=== PATIENT | female | born 1935 | race American Indian/Alaskan Native ===

== ENCOUNTER 2018-12-30 08:14 | Day surgery (SDC) | payer MEDICARE ==
[~2018-12-30 08:14] MED LIST: TETRACAINE 0.5% OS PRN
[2018-12-30] MEDS: MYDRIACYL OS SCH ×2 (09:45→09:55)
[2018-12-30] MEDS: VIGAMOX OS SCH ×3 (09:45→09:55)
[2018-12-30] MEDS: AK-Dilate OS SCH ×3 (09:45→09:55)
--- NOTE | 2018-12-30 10:10 | Anesthesia Day of Surgery ---
Anesthesia Day of Surgery - Day of Surgery Patient Examined: Yes Patient H&P Reviewed: Yes Patient is NPO: Yes
--- NOTE | 2018-12-30 10:15 | Anesthesia Consultation ---
Anesthesia Consult and Med Hx Date of service: 12/30/18 - Airway Anesthetic Teeth Evaluation: Good, Dentures ROM Head & Neck: Adequate Mental/Hyoid Distance: Adequate Mallampati Class: Class II Intubation Access Assessment: Probably Good - Pre-Operative Health Status ASA Pre-Surgery Classification: ASA3 Proposed Anesthetic Plan: MAC - Pulmonary Hx Smoking: No Hx Sleep Apnea: No - Cardiovascular System Hx Hypertension: Yes Hx Heart Attack/AMI: No Hx Angina: No - Central Nervous System CVA: Yes Hx Psychiatric Problems: Yes (Depression) - Gastrointestinal Hx Gastroesophageal Reflux Disease: Yes - Endocrine Hx Non-Insulin Dependent Diabetes: Yes - Hematic Hx Anemia: No - Other Systems Hx Alcohol Use: No Hx Substance Use: No Hx Cancer: No
[2018-12-30] MEDS ORDERED: VERSED ONE (11:01)
[2018-12-30] MEDS ORDERED: SUBLIMAZE ONE (11:02)
[2018-12-30] MEDS ORDERED: DIAMOX PO NR (11:15)
--- NOTE | 2018-12-30 11:16 | Operative Report ---
Operative Report Operative Report: PATIENT'S NAME: DATE OF : DATE OF SURGERY: 12/30/2018 PREOPERATIVE DIAGNOSIS: Cataract left eye POSTOPERATIVE DIAGNOSIS: Same OPERATIVE PROCEDURE: Phacoemulsification with intraocular lens implantation, left eye SURGEON: Juana Sidhu M.D. PHOTO TECHNOLOGIST SURGEON: Azeb Lens: 22.50 mx60e D ANESTHESIA: Monitored anesthesia care in combination with topical and intracameral anesthesia because of the established specific risk of reflux, arrhythmias, or anxiety attacks associated with ocular manipulation, as well as the difficulty of the cotton agent to manage such potentially catastrophic events while simultaneously attempting to complete the surgical procedure and was deemed necessary for the patient's safety to have an Senior Hydrogeologist present during the procedure whenever possible. An Senior Hydrogeologist was utilized to regulate the intravenous sedation of the patient so the patient was cooperative yet not asleep in order for the patient to successfully maintain fixation of the eye on the operating light of the microscope. COMPLICATIONS: No surgical complications No blood loss. ALLERGIES: No known drug allergies PROGNOSIS: Excellent INDICATIONS FOR SURGERY: The patient is undergoing surgery in the hopes of eliminating or improving these visual difficulties. PROCEDURE: After arriving at the surgery center, the patient was given topical anesthetic and dilating drops, as noted in the record. The patient was then taken into the operating room and given more anesthetic drops. The eyelids, lashes, and lid margins were scrubbed with Betadine solution, and the patient was draped. The Nurse Senior Hydrogeologist administered IV sedation and monitored the patient during the procedure. The eye was then fixated with a 0.12, and a stab incision was made in the peripheral clear cornea into the anterior chamber. This was made on my left side. Viscoelastic was next used to fill the anterior chamber. The eye was once again fixated with the 0.12 forceps and a keratome was used make an incision in clear cornea peripherally on my right hand side temporally. The capsule forceps were used to open the central anterior capsule and then make a continuous round capsulotomy. Hydrodissection was carried out utilizing a cannula and balanced salt solution to delineate the cortical material from the capsule and the nucleus from the cortical material. The phaco tip was introduced into the eye and used to remove the anterior cortical material in the area of the capsulotomy. Then the phaco tip was buried into the nucleus, and a chopping instrument was introduced into the eye and used to provide countertraction in the nucleus between this instrument and the phaco tip fracturing the nucleus. This procedure was repeated multiple times, providing multiple small segments of the lens, and then the phaco tip was used to remove each of these segments. An I/A tip was then used to remove the remaining cortex. The anterior chamber was refilled with viscoelastic. An one-piece, acrylic intraocular lens was then placed into an inserting cartridge. The tip of the inserting cartridge was introduced into the keratome incision and into the anterior chamber. The implant was gently advanced through the cartridge and into the eye, where it unfolded, and both haptics were placed in the capsular bag, where it centered nicely and appeared to be well fixated. After placement of the intraocular lens, the I~and~A handpiece was placed back into the eye and used to remove the viscoelastic, including viscoelastic that was behind the optic of the intraocular lens. The anterior chamber was then filled with balanced salt solution, and hydration of the wound was used to cause swelling of the wound and more appropriate watertight closure. When the wound was found to be firm, the patient was asked to comment on how bright the light was. If there was no light perception at all or if the light was substantially dimmer than during the rest of the surgery, the amount of fluid in the eye was decompressed to lower the intraocular pressure until the patient could see the bright light again. This was done to avoid any damage or decreased blood flow to the optic nerve. MEDICATIONS APPLIED AT END OF SURGERY: One drop of Pred Forte and Vigamox The patient was given a shield to wear at night and was instructed not to rub or push on the eye. DISCHARGE SUMMARY: The patient was released in stable condition. The patient and those with the patient were given a written sheet of postoperative instructions and counseling on any abnormal laboratory studies. The patient is to see us tomorrow for follow-up in the office and is to call immediately for any difficulties. Juana Sidhu M.D. Date
--- NOTE | 2018-12-30 11:17 | Short Stay Summary ---
Short Stay Documentation Date of service: 12/30/18 - History H&P: obtained from office - Allergies and Medications Current Medications: Allergies No Known Allergies Allergy (Unverified 12/29/18 09:11) Home Medications Medication Instructions Recorded Confirmed Last Taken Type Aspirin 81 mg PO DAILY 12/29/18 12/29/18 12/29/18 14:00 History Atorvastatin 20 mg PO DAILY 12/29/18 12/29/18 12/29/18 14:00 History DULoxetine 20 cap PO DAILY 12/29/18 12/29/18 12/29/18 14:00 History Fluticasone 50 mg INTRANASAL BID 12/29/18 12/29/18 12/29/18 14:00 History Lisinopril [Zestril TAB] 40 mg PO DAILY 12/29/18 12/29/18 12/29/18 14:00 History Vitamin D (Nf) 1,000 units PO DAILY 12/29/18 12/29/18 12/29/18 14:00 History amLODIPine 5 mg PO DAILY 12/29/18 12/29/18 12/29/18 14:00 History metFORMIN 500 mg PO BID 12/29/18 12/29/18 12/29/18 14:00 History Active Medications Acetazolamide (Diamox) 500 mg PO ONCE ONE Stop: 12/30/18 11:16 Moxifloxacin HCl (Vigamox) 1 drops OS Q5M [facility] Stop: 12/30/18 23:59 Last Admin: 12/30/18 09:55 Dose: 1 drops Documented by: Phenylephrine HCl (Ak-Dilate) 1 drops OS Q5M [facility] Stop: 12/30/18 23:59 Last Admin: 12/30/18 09:55 Dose: 1 drops Documented by: Prednisolone Acetate (Pred Forte 1%) 1 drops OS ONCE NR Tetracaine HCl (Tetracaine 0.5%) 1 drops OS Q5M PRN PRN Reason: Anesthesia Stop: 12/30/18 23:59 Last Admin: 12/30/18 09:45 Dose: 1 drops Documented by: Tropicamide (Mydriacyl) 1 drops OS Q5M [facility] Stop: 12/30/18 23:59 Last Admin: 12/30/18 09:55 Dose: 1 drops Documented by: - Brief post op/procedure progress note Date of procedure: 12/30/18 Pre-op diagnosis: left cataract Post-op diagnosis: same Procedure: Phacoemulsification with intraocular lens insertion left eye Anesthesia: MAC, local Surgeon: SUSANA GUADALUPE Estimated blood loss: none Pathology: none Condition: stable - Disposition Condition at discharge: Good Disposition: DC-01 TO HOME OR SELFCARE - Discharge Diagnoses (1) Combined forms of age-related cataract of left eye Status: Resolved Short Stay Discharge Plan Follow up with: A[facility]IN ALMEIDA [Other] - 7 Days
[2018-12-30] MEDS ORDERED: NACL P/F VIAL (10 ML) 10 ML ONE (11:25)
[2018-12-30] MEDS ORDERED: ZESTRIL PO SCH (12:00)
[2018-12-30] MEDS ORDERED: NORVASC PO SCH (12:00)
[2018-12-30] MEDS ORDERED: PRED FORTE 1% OS NR (12:00)
--- NOTE | 2018-12-30 13:11 | Post Anesthesia Evaluation ---
- Post Anesthesia Evaluation Patient Participated: Yes Airway Patent: Yes Stable Respiratory Function: Yes Nausea/Vomiting: No Temp > 96.8F: Yes Pain Manageable: Yes Adequeate Hydration: Yes Anesthesia Complications: No
[2018-12-30 15:00] VITALS: BP 158/78
== END 2018-12-30 13:20 | disposition home or self-care (01) ==
LOC: OR 08:14
DX: E11.36 Type 2 diabetes mellitus with diabetic cataract (principal); H25.812 Combined forms of age-related cataract, left eye; E78.00 Pure hypercholesterolemia, unspecified; I10 Essential (primary) hypertension; K21.9 Gastro-esophageal reflux disease without esophagitis; M19.90 Unspecified osteoarthritis, unspecified site; F32.9 Major depressive disorder, single episode, unspecified; Z98.890 Other specified postprocedural states; Z79.899 Other long term (current) drug therapy; Z79.82 Long term (current) use of aspirin; Z79.84 Long term (current) use of oral hypoglycemic drugs; Z86.73 Personal history of transient ischemic attack (TIA), and cerebral infarction without residual deficits
CPT/HCPCS: 66984; 82962; J2250; J3010; V2632

== ENCOUNTER 2019-01-20 08:35 | Day surgery (SDC) | payer MEDICARE ==
[2019-01-20] MEDS ORDERED: AK-Dilate OD ONE (08:48)
[2019-01-20] MEDS ORDERED: TETRACAINE 0.5% OD SCH (09:00)
--- NOTE | 2019-01-20 09:36 | Anesthesia Day of Surgery ---
Anesthesia Day of Surgery - Day of Surgery Patient Examined: Yes Patient H&P Reviewed: Yes Patient is NPO: Yes
--- NOTE | 2019-01-20 09:39 | Anesthesia Consultation ---
Anesthesia Consult and Med Hx Date of service: 01/20/19 - Airway Anesthetic Teeth Evaluation: Dentures ROM Head & Neck: Adequate Mental/Hyoid Distance: Adequate Mallampati Class: Class II Intubation Access Assessment: Good - Pre-Operative Health Status ASA Pre-Surgery Classification: ASA3 Proposed Anesthetic Plan: MAC - Pulmonary Hx Smoking: No Hx Sleep Apnea: No - Cardiovascular System Hx Hypertension: Yes Hx Heart Attack/AMI: No Hx Angina: No - Central Nervous System CVA: Yes (TIA) Hx Psychiatric Problems: Yes (Depress) - Gastrointestinal Hx Gastroesophageal Reflux Disease: Yes - Endocrine Hx Non-Insulin Dependent Diabetes: Yes - Hematic Hx Anemia: No - Other Systems Hx Alcohol Use: No Hx Substance Use: No Hx Cancer: No
[2019-01-20] MEDS: AK-Dilate OD SCH ×3 (09:56→10:06)
[2019-01-20] MEDS: MYDRIACYL OD NR ×3 (09:56→10:06)
[2019-01-20] MEDS: VIGAMOX OD SCH ×3 (09:56→10:06)
[2019-01-20] MEDS ORDERED: SUBLIMAZE ONE (10:19)
[2019-01-20] MEDS ORDERED: VERSED ONE (10:19)
--- NOTE | 2019-01-20 10:42 | Operative Report ---
Operative Report Operative Report: PATIENT'S NAME: DATE OF : DATE OF SURGERY: 01/20/2019 PREOPERATIVE DIAGNOSIS: Cataract right eye POSTOPERATIVE DIAGNOSIS: Same OPERATIVE PROCEDURE: Phacoemulsification with intraocular lens implantation, right eye SURGEON: Juana Sidhu M.D. BANK PRESIDENT SURGEON: Azeb Lens: mx60e 24.0 D ANESTHESIA: Monitored anesthesia care in combination with topical and intracameral anesthesia because of the established specific risk of reflux, arrhythmias, or anxiety attacks associated with ocular manipulation, as well as the difficulty of the site superintendent to manage such potentially catastrophic events while simultaneously attempting to complete the surgical procedure and was deemed necessary for the patient's safety to have an Chief Substation Operator present during the procedure whenever possible. An Chief Substation Operator was utilized to regulate the intravenous sedation of the patient so the patient was cooperative yet not asleep in order for the patient to successfully maintain fixation of the eye on the operating light of the microscope. COMPLICATIONS: No surgical complications No blood loss. ALLERGIES: No known drug allergies PROGNOSIS: Excellent INDICATIONS FOR SURGERY: The patient is undergoing surgery in the hopes of eliminating or improving these visual difficulties. PROCEDURE: After arriving at the surgery center, the patient was given topical anesthetic and dilating drops, as noted in the record. The patient was then taken into the operating room and given more anesthetic drops. The eyelids, lashes, and lid margins were scrubbed with Betadine solution, and the patient was draped. The Nurse Chief Substation Operator administered IV sedation and monitored the patient during the procedure. The eye was then fixated with a 0.12, and a stab incision was made in the peripheral clear cornea into the anterior chamber. This was made on my left side. Viscoelastic was next used to fill the anterior chamber. The eye was once again fixated with the 0.12 forceps and a keratome was used make an incision in clear cornea peripherally on my right hand side temporally. The capsule forceps were used to open the central anterior capsule and then make a continuous round capsulotomy. Hydrodissection was carried out utilizing a cannula and balanced salt solution to delineate the cortical material from the capsule and the nucleus from the cortical material. The phaco tip was introduced into the eye and used to remove the anterior cortical material in the area of the capsulotomy. Then the phaco tip was buried into the nucleus, and a chopping instrument was introduced into the eye and used to provide countertraction in the nucleus between this instrument and the phaco tip fracturing the nucleus. This procedure was repeated multiple times, providing multiple small segments of the lens, and then the phaco tip was used to remove each of these segments. An I/A tip was then used to remove the remaining cortex. The anterior chamber was refilled with viscoelastic. An one-piece, acrylic intraocular lens was then placed into an inserting cartridge. The tip of the inserting cartridge was introduced into the keratome incision and into the anterior chamber. The implant was gently advanced through the cartridge and into the eye, where it unfolded, and both haptics were placed in the capsular bag, where it centered nicely and appeared to be well fixated. After placement of the intraocular lens, the I~and~A handpiece was placed back into the eye and used to remove the viscoelastic, including viscoelastic that was behind the optic of the intraocular lens. The anterior chamber was then filled with balanced salt solution, and hydration of the wound was used to cause swelling of the wound and more appropriate watertight closure. When the wound was found to be firm, the patient was asked to comment on how bright the light was. If there was no light perception at all or if the light was substantially dimmer than during the rest of the surgery, the amount of fluid in the eye was decompressed to lower the intraocular pressure until the patient could see the b right light again. This was done to avoid any damage or decreased blood flow to the optic nerve. MEDICATIONS APPLIED AT END OF SURGERY: One drop of Pred Forte and Vigamox The patient was given a shield to wear at night and was instructed not to rub or push on the eye. DISCHARGE SUMMARY: The patient was released in stable condition. The patient and those with the patient were given a written sheet of postoperative instructions and counseling on any abnormal laboratory studies. The patient is to see us tomorrow for follow-up in the office and is to call immediately for any difficulties. Juana Sidhu M.D. Date
--- NOTE | 2019-01-20 10:43 | Short Stay Summary ---
Short Stay Documentation Date of service: 01/20/19 - History H&P: obtained from office - Allergies and Medications Current Medications: Allergies No Known Allergies Allergy (Verified 01/17/19 16:46) Home Medications Medication Instructions Recorded Confirmed Last Taken Type Aspirin 81 mg PO DAILY 12/29/18 01/17/19 12/29/18 14:00 History Atorvastatin 20 mg PO DAILY 12/29/18 01/17/19 12/29/18 14:00 History DULoxetine 20 cap PO DAILY 12/29/18 01/17/19 12/29/18 14:00 History Fluticasone 50 mg INTRANASAL BID 12/29/18 01/17/19 12/29/18 14:00 History Lisinopril [Zestril TAB] 40 mg PO DAILY 12/29/18 01/17/19 12/29/18 14:00 History Vitamin D (Nf) 1,000 units PO DAILY 12/29/18 01/17/19 12/29/18 14:00 History amLODIPine 5 mg PO DAILY 12/29/18 01/17/19 12/29/18 14:00 History metFORMIN 500 mg PO BID 12/29/18 01/17/19 12/29/18 14:00 History Active Medications Acetazolamide (Diamox) 500 mg PO ONCE ONE Stop: 01/20/19 10:41 Moxifloxacin HCl (Vigamox) 1 drops OD Q5MIN [facility] Stop: 01/22/19 09:01 Phenylephrine HCl (Ak-Dilate) 1 drops OD Q5MIN [facility] Stop: 01/20/19 15:00 Prednisolone Acetate (Pred Forte 1%) 1 drops OS ONCE NR Tetracaine HCl (Tetracaine 0.5%) 1 drops OD Q5M [facility] Stop: 01/20/19 15:00 Tropicamide (Mydriacyl) 1 drops OD Q5MIN [facility] Stop: 01/20/19 15:00 - Brief post op/procedure progress note Date of procedure: 01/20/19 Pre-op diagnosis: right cataract Post-op diagnosis: same Procedure: Phacoemulsification with intraocular lens insertion right eye Anesthesia: MAC, local Surgeon: SUSANA GUADALUPE Estimated blood loss: none Pathology: none Condition: stable - Disposition Condition at discharge: Good - Discharge Diagnoses (1) Cortical age-related cataract of right eye Status: Resolved Short Stay Discharge [facility] - [facility]
[2019-01-20] MEDS ORDERED: PRED FORTE 1% OS NR (11:00)
[2019-01-20] MEDS ORDERED: PRED FORTE 1% OD NR (11:30)
[2019-01-20] MEDS ORDERED: DIAMOX PO ONE (11:40)
--- NOTE | 2019-01-20 14:08 | Post Anesthesia Evaluation ---
- Post Anesthesia Evaluation Patient Participated: Yes Airway Patent: Yes Stable Respiratory Function: Yes Nausea/Vomiting: No Temp > 96.8F: Yes Pain Manageable: Yes Adequeate Hydration: Yes Anesthesia Complications: No Block Receding Appropriately: Not Applicable Patient on Ventilator: No
[2019-01-20 14:23] VITALS: BP 154/73
== END 2019-01-20 13:05 | disposition home or self-care (01) ==
LOC: OR 08:35
DX: E11.36 Type 2 diabetes mellitus with diabetic cataract (principal); H25.011 Cortical age-related cataract, right eye; E78.00 Pure hypercholesterolemia, unspecified; I10 Essential (primary) hypertension; K21.9 Gastro-esophageal reflux disease without esophagitis; M19.90 Unspecified osteoarthritis, unspecified site; F32.9 Major depressive disorder, single episode, unspecified; Z79.899 Other long term (current) drug therapy; Z79.84 Long term (current) use of oral hypoglycemic drugs; Z79.82 Long term (current) use of aspirin; Z98.42 Cataract extraction status, left eye; Z98.890 Other specified postprocedural states; Z86.73 Personal history of transient ischemic attack (TIA), and cerebral infarction without residual deficits
CPT/HCPCS: 66984; 82962; J2250; J3010; V2632